=== PATIENT | male | born 1935 | race Caucasian/White ===

== ENCOUNTER 2017-03-08 14:18 | Inpatient (IN) | payer OTHER ==
[~2017-03-08] VITALS: Ht 170.2 cm; Wt 109.8 kg
[~2017-03-08 14:18] MED LIST: ADULT LOW DOSE81 MG PO; ALBUTEROL SULF8.5 GM IH; ASPIR-LOW81 MG PO; ATORVASTATIN CA80 MG PO; BUSPIRONE HCL10 MG PO; CALCICARB650 MG PO; COMBIVENT INH14.7 GM INH; FUROSEMIDE20 MG PO; GLIPIZIDE10 MG PO; GLIPIZIDE5 MG PO; ISTALOL2.5 ML OU; LISINOPRIL20 MG PO; METOPROLOL TART25 MG PO; METOPROLOL TART50 MG PO; MONTELUKAST SOD10 MG PO; NORVASC10 MG PO; ONE DAILY COMP1 EACH PO; PAROXETINE HCL20 MG PO; POTASSIUM CHLO10 MEQ PO; PRAVACHOL80 MG PO; PREDNISONE5 MG PO; PROVENTIL HFA6.7 GM INH; SPIRONOLACTONE25 MG PO; SYMBICORT 16010.2 GM INH; TRAVATAN 0.0042.5 ML OU
[2017-03-09] MEDS ORDERED: XALATAN2.5 ML OU (10:44)
[2017-03-09] MEDS ORDERED: FOLIC ACID0.8 MG PO (15:12)
[2017-03-09] MEDS ORDERED: SPIRIVA RESPIMAT4 G1 INH (15:14)
[2017-03-09] MEDS ORDERED: PROVENTIL HFA6.7 GM INH (15:15)
[2017-03-09] MEDS ORDERED: MAGNESIUM500 MG PO (15:15)
[2017-03-09] MEDS ORDERED: LANTUS SOL100 UNIT/1 SUB-Q (16:09)
[2017-03-13] MEDS ORDERED: CIPROFLOXACIN500 MG PO (10:10)
== END 2017-03-13 13:10 | disposition home or self-care (01) | DRG 603 ==
LOC: ED 14:18 → CCU 16:24 → MS 03-09 10:15
PROVIDERS: ADMIT Internal Medicine
DX: L03.116 Cellulitis of left lower limb (principal); E11.51 Type 2 diabetes mellitus with diabetic peripheral angiopathy without gangrene; Z79.4 Long term (current) use of insulin; Z79.52 Long term (current) use of systemic steroids; K59.00 Constipation, unspecified; I12.9 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e 4 chronic kidney disease, or unspecified chronic kidney disease; E11.22 Type 2 diabetes mellitus with diabetic chronic kidney disease; N18.3 Chronic kidney disease, stage 3 (moderate); R60.9 Edema, unspecified; J44.9 Chronic obstructive pulmonary disease, unspecified; E11.65 Type 2 diabetes mellitus with hyperglycemia; F39 Unspecified mood [affective] disorder; Z87.891 Personal history of nicotine dependence; Z99.3 Dependence on wheelchair; Z79.82 Long term (current) use of aspirin
CPT/HCPCS: 36415; 74176; 80053; 80069; 80202; 82565; 83036; 83605; 83735; 83880; 84520; 85025; 87070; 87075; 87077; 87186; 87205; 93306; 94640; J0696; J1650; J2405; J2550; J3370; J7030; J7060; J7120; J7512

== ENCOUNTER 2018-06-24 10:22 | Emergency (ER) | payer MEDICARE ==
[~2018-06-24] VITALS: Ht 170.2 cm; Wt 109.8 kg
[~2018-06-24 10:22] MED LIST changes: +CIPROFLOXACIN500 MG PO; +FOLIC ACID0.8 MG PO; +LANTUS SOL100 UNIT/1 SUB-Q; +MAGNESIUM500 MG PO; +SPIRIVA RESPIMAT4 G1 INH; +XALATAN2.5 ML OU
--- OUTSIDE RECORDS SUMMARY | 2018-06-24 10:36 | XMS ---
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 Guidelines Source: [facility] Guidelines Date: 12/19/2017 Care Coordination: PATIENT IS UNDER SERVICES AT [facility].\T\nbsp; IF PATIENT IS SEEN IN THE ED, PLEASE NOTIFY THEM AT [phone].\T\nbsp; IF AFTER HOURS OR ON WEEKENDS PLEASE CALL SWITCHBOARD AT [phone] AND HAVE ON-CALL RN NOTIFIED. E.D. VISIT COUNT (12 MO.) 1 [facility]. TOTAL 1 NOTE: Visits indicate total known visits. ED/UCC VISIT TRACKING (12 MO.) 06/24/2018 10:23 [facility] [place] TYPE: Emergency COMPLAINT: - BACK PAIN INPATIENT VISIT TRACKING (12 MO.) No inpatient visits to display in this time frame [id number]
[2018-06-24] MEDS ORDERED: FUROSEMIDE20 MG PO (10:42)
[2018-06-24] MEDS ORDERED: CLOPIDOGREL75 MG PO (10:44)
[2018-06-24] MEDS ORDERED: ULTRAM50 MG PO (12:43)
[2018-06-24] MEDS ORDERED: MEDROL4 MG PO (12:43)
== END 2018-06-24 12:57 | disposition home or self-care (01) ==
LOC: ED 10:22
DX: M51.36 Other intervertebral disc degeneration, lumbar region (principal); M48.061 Spinal stenosis, lumbar region without neurogenic claudication; E11.9 Type 2 diabetes mellitus without complications; I10 Essential (primary) hypertension; J44.9 Chronic obstructive pulmonary disease, unspecified; Z87.891 Personal history of nicotine dependence; Z88.8 Allergy status to other drugs, medicaments and biological substances; Z79.899 Other long term (current) drug therapy; Z79.82 Long term (current) use of aspirin; Z79.4 Long term (current) use of insulin
CPT/HCPCS: 72131; 74176; 80053; 81001; 85025; 99284-25

== ENCOUNTER 2018-08-04 13:14 | Emergency (ER) | payer MEDICARE ==
[~2018-08-04] VITALS: Ht 170.2 cm; Wt 104.4 kg
[~2018-08-04 13:14] MED LIST changes: +CLOPIDOGREL75 MG PO; +MEDROL4 MG PO; +ULTRAM50 MG PO
--- OUTSIDE RECORDS SUMMARY | 2018-08-04 13:16 | XMS ---
PreManage Notification: FILI CHAPA Security Hand Roller Events No recent Security Events currently on file CRITERIA MET - [facility] - Has Care Guidelines CARE PROVIDERS JONI STARK Internal Medicine 06/25/2018-Current [facility] PHONE: [phone] Alma Delia has no Care Guidelines for this patient. Care History Medical/Surgical 06/25/2018 [facility] - Patient is currently established with [facility]. If patient is seen in the ED during business hours. Please contact CHWs at [facility]. Care Recommendation: This patient has had 5 or more Emergency Department visits in the last 12 months.\T\nbsp; Patient requires education on the scope and purpose of the ED as an acute care provider not a Primary Care Provider and should not be utilized for chronic conditions.\T\nbsp; These are guidelines and the provider should exercise clinical judgment when providing care. E.D. VISIT COUNT (12 MO.) 2 [facility] TOTAL 2 NOTE: Visits indicate total known visits. ED/UCC VISIT TRACKING (12 MO.) 08/04/2018 13:15 [facility] [place] TYPE: Emergency COMPLAINT: - ANXIETY,BLOOD PRESSURE PROBLEM 06/24/2018 10:23 [facility] [place] TYPE: Emergency COMPLAINT: - BACK PAIN DIAGNOSES: - Chronic obstructive pulmonary disease, unspecified - Low back pain - Spinal stenosis, lumbar region without neurogenic claudication - care home (current) use of aspirin - Personal history of nicotine dependence - Essential (primary) hypertension - Other halfway (current) drug therapy - Type 2 diabetes mellitus without complications - Other intervertebral disc degeneration, lumbar region - Allergy status to other drugs, medicaments and biological substances status - 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
--- NOTE | 2018-08-05 16:55 | EKG ---
[facility] [address] [place] [address] Signed Normal sinus rhythm Right bundle branch block Left anterior fascicular block Bifascicular block Abnormal ECG When compared with ECG of 16-JUL-2016 13:02, premature atrial complexes are no longer present Vent. rate has increased BY 32 BPM Left anterior fascicular block is now present T wave inversion no longer evident in Lateral leads Confirmed by CHAZ AVENDAÑO DO ([id number]) on 08/05/2018 4:55:08 PM Electronically Signed By: CHAZ AVENDAÑO DO 08/05/18 1655 PATIENT NAME: FILI CHAPA Electrocardiogram DATE OF : 39 PHYSICIAN: CHAZ AVENDAÑO DO REPORT #: [id number] REPORT IS CONFIDENTIAL AND NOT TO BE RELEASED WITHOUT AUTHORIZATION
== END 2018-08-04 17:45 | disposition short-term general hospital (02) ==
LOC: ED 13:14
DX: F41.9 Anxiety disorder, unspecified (principal); J44.9 Chronic obstructive pulmonary disease, unspecified; I12.9 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e 4 chronic kidney disease, or unspecified chronic kidney disease; E11.22 Type 2 diabetes mellitus with diabetic chronic kidney disease; N18.9 Chronic kidney disease, unspecified; R79.89 Other specified abnormal findings of blood chemistry; Z87.891 Personal history of nicotine dependence; Z88.8 Allergy status to other drugs, medicaments and biological substances; Z79.899 Other long term (current) drug therapy; Z79.52 Long term (current) use of systemic steroids; Z79.82 Long term (current) use of aspirin; Z79.4 Long term (current) use of insulin
CPT/HCPCS: 71046; 80053; 81001; 83735; 83880; 84443; 84484; 85025; 93005; 93010; 99284-25

== ENCOUNTER 2019-05-04 11:08 | Inpatient (IN) | payer MEDICARE ==
[~2019-05-04] VITALS: Ht 170.2 cm; Wt 101.2 kg
[~2019-05-04 11:08] MED LIST changes: -CALCICARB650 MG PO; +CALCIUM600 MG PO; +TORSEMIDE20 MG PO
--- OUTSIDE RECORDS SUMMARY | 2019-05-04 11:14 | XMS ---
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 Care History Medical/Surgical 04/13/2019 [facility] Patient came in after walk in clinic closed.\T\nbsp; Patient has follow up with Dr. Stark on 04/14/2019 06/25/2018 [facility] - Patient is currently established with [facility]. If patient is seen in the ED during business hours. Please contact CHWs at [facility]. Care Recommendation: This patient has had 5 [...] providing care. E.D. VISIT COUNT (12 MO.) [address] [facility] TOTAL 4 NOTE: Visits indicate total known visits. 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 - Allergy status to oth drug/meds/biol subst status - Other intermediate (current) drug therapy - Personal history of nicotine dependence - Shortness of breath - Chronic obstructive pulmonary disease, unspecified - 1 Type 2 diabetes mellitus without complications - 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 - Heart failure, unspecified 08/04/2018 13:15 [facility] [place] TYPE: Emergency COMPLAINT: - ANXIETY,BLOOD PRESSURE PROBLEM DIAGNOSES: - Anxiety disorder, unspecified - Other specified abnormal findings of blood chemistry - Chronic kidney disease, unspecified - 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 - Other buttermilk drier operator (current) drug therapy - 1 Hypertensive chronic kidney disease w stg 1-4/unsp chr kdny - Chronic obstructive pulmonary disease, unspecified - 1 Type 2 diabetes mellitus w diabetic chronic kidney disease - Allergy status to oth drug/meds/biol subst status - Personal history of nicotine dependence - long-term (current) use of systemic steroids - 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 06/24/2018 10:23 [facility] [place] TYPE: Emergency COMPLAINT: - BACK PAIN DIAGNOSES: - Chronic obstructive pulmonary disease, unspecified - Low back pain - Spinal stenosis, lumbar region without neurogenic bernadette - 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 - Personal history of nicotine dependence - Essential (primary) hypertension - Other buttermilk drier operator (current) drug therapy - 1 Type 2 diabetes mellitus without complications - Other intervertebral disc degeneration, lumbar region - Allergy status to oth drug/meds/biol subst status - 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 INPATIENT VISIT TRACKING (12 MO.) 08/04/2018 18:18 [facility] [place] [facility] TYPE: Medical Surgical DIAGNOSES: - Chronic obstructive pulmonary disease w (acute) exacerbation - 1 Chronic kidney disease, stage 3 (moderate) - Peripheral vascular disease, unspecified - 1 Pressure ulcer of left heel, stage - 1 Type 2 diabetes mellitus without complications - Acute kidney failure, unspecified - Major depressive disorder, single episode, unspecified - Essential (primary) hypertension - Chronic obstructive pulmonary disease, unspecified - 1 Chronic kidney disease, stage 4 (severe) - 1 Type 2 diabetes mellitus with other specified complication - Anxiety disorder, unspecified - Proteinuria, unspecified - 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
--- NOTE | 2019-05-04 12:35 | NUR ---
84 YEAR OLD MALE PATIENT ADMITTED TO CCU VIA STRETCHER UNDER DR. STARK WITH DX OF SEPSIS R/T PNEUMONIA. PATIENT IS VERY LETHARGIC. IS ABLE TO ANSWERE TO FEW QUESTIONS THE RIGHT BACK TO SLEEP. FOLLOWING COMMANDS. IS CONFUSED TO PLACE. HAVING SNORING LIKE RESPS. UPPER AIRWAY NOISE NOTED. TEAGUE CATH PATIENT WITH CLEAR YELLOW URINE NOTED. LR ONE LITER BOLUS HUNG. IS IN ROOM PUT IS GOING HOME NOW. DIFFICULT TO DO ADMIT IS HAVING DIFFICULTLY ANSWERING QUESTIONS.
[2019-05-04] MEDS ORDERED: DOXAZOSIN MESYLA8 MG PO (14:57)
[2019-05-04] MEDS ORDERED: GLIPIZIDE10 MG PO (15:01)
[2019-05-04] MEDS ORDERED: TORSEMIDE20 MG PO (15:01)
--- NOTE | 2019-05-04 15:40 | NUR ---
BOLUS INFUSED. LR AT 125 ML/HR HUNG. DAUGHTER IN ROOM. DRESSING APPLIED TO LEFT HEEL. HEEL PROTECTORS ON. PATIENT HAS BEEN TREATED R/T DECUB ON LEFT HEEL BY HOME HEALTH FOR SOMETIME.
--- NOTE | 2019-05-04 16:00 | NUR ---
CONTINUES TO BE LETHARGIC. SNORING RESP.
--- NOTE | 2019-05-04 16:11 | NUR ---
Spoke with pt's daughter as pt is pleasantly confused. Daughter states Home Health saw the pt. today and called the ambulance due to altered senses. Pt and live with daughter in a 1 story house with ramps. Daughter does all the cooking and pt and dlean their area and wash their laundry. [facility] [place] 10 years and can take 1-2 steps to transfer. Pt is retired from [employer]. Daughter states pt will go home at discharge and does not want him to go to a SNF.
--- NOTE | 2019-05-04 17:00 | NUR ---
DR. STARK HERE AND UPDATED ON PATIENT CONDITION. ORDERS RECIEVED TO DRAW ABG. O2 REMAINS AT 2 L NC.
--- NOTE | 2019-05-04 17:42 | NUR ---
ABGS RESULTS ON 2 L NC, PH-7.37, PC02-40.7, PO2-93,SAT-96.5.
--- NOTE | 2019-05-04 18:00 | NUR ---
MORE ALERT, RESPONDING APPROP. REPOSITIONED TO RIGHT SIDE. COCCYX AND BUTTOCKS REDDENED. CARES GIVEN. SIPS OF WATER GIVEN TOLERATED WELL.
--- NOTE | 2019-05-04 18:50 | NUR ---
REMAINS MORE ALERT. IS AWARE THAT SPUTUM CULTURE IS NEEDED. SPUTUM CUP IS AT BEDSIDE.
--- NOTE | 2019-05-04 19:39 | NUR ---
PT REPORT RECIEVED FROM CCU RN. CARE OF PATIENT ASSUMED AT THIS TIME.
--- NOTE | 2019-05-04 20:09 | NUR ---
PT ASSESSMENT COMPLETED. PT AWAKENS TO VOICE, THEN BACK TO SLEEP DURING ASSESSMENT. LUNGS SOUN DIMINISHED IN BOTH BASES, EXPIRATORY WHEEZE NOTED IN UPPER AIRWAYS. PT DENIES CHEST PAIN, NAUSEA, OR SHORTNESS OF BREATH. CALL LIGHT WITHIN REACH. BED ALARM ON BED FOR SAFETY.
--- NOTE | 2019-05-04 21:56 | NUR ---
IN ROOM TO CHECK ON PATIENT. ASSISTED WITH REPOSITIONING. STATES PAIN HAS REDUCED TO 3/10 SINCE TYLENOL ADMINISTRATION. CALL LIGHT WITHIN REACH. NO FURTHER NEEDS AT THIS TIME.
--- NOTE | 2019-05-04 23:15 | NUR ---
PT RESTING WITH EYES CLOSED BREATHING EVEN AND UNLABORED R= 18. CALL LIGHT WITHIN REACH. NO MORE ASSESSED NEEDS AT THIS TIME.
--- NOTE | 2019-05-05 00:10 | NUR ---
IN ROOM TO ASSESS PATIENT. PT RESPONDS APPROPRIATELY. ALERT AND ORIENTED. DENIES PAIN AND DISCOMFORT AT THIS TIME. REPOSTIONED ONTO LEFT SIDE. LUNGS SOUND COARSE AND DIMINISHED IN THE BASES, EXPIRATORY WHEEZES UP UPPER LEFT LOBE NOTED. SATURATIONS 98 PERCENT ON 2 L NC, R = 20. CALL LIGHT WITHIN REACH. NO REPORTED OR ASSESSED NEEDS AT THIS TIME.
--- NOTE | 2019-05-05 02:00 | NUR ---
IN ROOM TO CHECK ON PATIENT. PT STATES HE FEELS MORE SHORT OF BREATH AND COUGH. STATES A GENERALIZED FEELING OF DISCOMFORT. TEMPERATURE IS 99.9 ORALLY. CALLED RESPIRATORY THERAPY TO GIVE A PRN BREATHING TREATMENT AND GIVEN PRN MEDICATION FOR FEVER AND PAIN (SEE EMAR).
--- NOTE | 2019-05-05 03:04 | NUR ---
PT APPEARS TO BE RESTING MORE COMFORTABLY. DENIES FEELING SHORT OF BREATH, TEMPERATURE DOWN TO 98.9 ORALLY. CALL LIGHT WITHIN REACH. NO FURTHER NEEDS AT THIS TIME.
--- NOTE | 2019-05-05 04:40 | NUR ---
IN ROOM FOR ASSESSMENT. PT SHAKY, HACKING COUGH THAT IS NON PRODUCTIVE AT THIS TIME. PT HAS EXPIRATORY WHEEZES IN BOTH LOWER AIR BREWER. HEART RATE SLIGHTLY ELEVATED IN THE 100-110.
--- NOTE | 2019-05-05 05:46 | NUR ---
PT GIVEN TYLENOL FOR ORAL TEMP OF 100.3. PT TREMBELING, HEART RATE REMAINS IN 105-110.
--- NOTE | 2019-05-05 06:26 | NUR ---
PT TEMPERATURE 101.[address] STARK NOTIFIED. ORDERS FOR A SECOND SET OF BLOOD CULTURES RECIEVED.
--- NOTE | 2019-05-05 07:30 | NUR ---
REPORT RECIEVED. PATIENT IS LAYING IN BED WITH HOB ELEVATED. NO DISTRESS NOTED.
--- NOTE | 2019-05-05 08:00 | NUR ---
ASSESSMENT DONE. TALKED WITH PATIENT ABOUT POC FOR DAY. PATIENT IS SLEETMUTE. IS DIFFICULT TO KNOW IF PATIENT IS UNDERSTANDING ALL THAT IS SAID.
--- NOTE | 2019-05-05 08:30 | NUR ---
OOB TO CHAIR WITH USE OF WALKER AND ASSIST OF 2 STAFF, WITH INCREASED SHORTNESS OF BREATH WITH EXERTION. CLEAR LIQUID DIET ORDERED. PATIENT STATES HE FEELS VERY TIRED. FULLY ORIENTED. IVF AND TEAGUE CATH PATENT. O2 REMAINS AT 2 L NC.
--- NOTE | 2019-05-05 09:30 | NUR ---
DR. STARK HERE TO SEE PATIENT, ORDERS RECIEVED. PATIENT TOOK CLEAR LIQUID BREAKFAST WELL. DENIES NAUSEA. IS IN ROOM.
[2019-05-05] MEDS ORDERED: PAROXETINE HCL20 MG PO (10:33)
[2019-05-05] MEDS ORDERED: NEURONTIN300 MG PO (10:34)
[2019-05-05] MEDS ORDERED: ALOGLIPTIN12.5 MG PO (10:35)
[2019-05-05] MEDS ORDERED: SPIRIVA RESPIMAT4 GM INH (10:37)
[2019-05-05] MEDS ORDERED: NORVASC5 MG PO (10:38)
[2019-05-05] MEDS ORDERED: FEOSOL325 MG PO (10:39)
[2019-05-05] MEDS ORDERED: COLACE CLEAR50 MG PO (10:40)
[2019-05-05] MEDS ORDERED: MEN'S ONE DAIL1 EACH PO (10:41)
[2019-05-05] MEDS ORDERED: FOLIC ACID0.8 MG PO (10:43)
--- NOTE | 2019-05-05 10:45 | NUR ---
TO COMMODE WITH ASSIST, UNABLE TO HAVE BM. PATIENT STATES THE STOOL IS RIGHT THERE, MODFIED DIGITAL DONE. PATIENT THEN BACK TO BED WITH ASSIST.
--- NOTE | 2019-05-05 11:31 | NUR ---
NEB TREATMENT BEING GIVEN BY RT PT IS WITH WHEEZES UPON RETURN TO BED.
[2019-05-05] MEDS ORDERED: LASIX20 MG PO (11:44)
[2019-05-05] MEDS ORDERED: HUMULIN R100 UNIT/1 SUB-Q (12:42)
--- NOTE | 2019-05-05 12:45 | NUR ---
Med rec completed using [facility] refill history, plus med list provided by Dr. Harris.
--- NOTE | 2019-05-05 13:00 | NUR ---
Resting quietly, not awakened.
--- NOTE | 2019-05-05 13:45 | NUR ---
when suppository given, SMALL OPEN AREA ON COCCYX NOTED , ALSO HAS SMALL BRUISE LIKE AREA ON RIGHT INNER BUTTOCKS. ALLEVYN DRESSING APPLIED TO BOTH OF THESE AREAS.
--- NOTE | 2019-05-05 14:00 | NUR ---
RESTING. HOB ELEVATED. NO DISTRESS NOTED.
--- NOTE | 2019-05-05 14:45 | NUR ---
C/O FEELING VERY ANXIOUS. RESP RATE 28. PATIENT STATES HE HAS ANXIETY SOMETIMES AT HOME. STATES I JUST DON'T FEEL RIGHT. DENEIS CHEST PAIN. DAMP RAG APPLIED TO FOREHEAD. EMOTIONAL SUPPORT GIVEN. DR. STARK NOTIFIED REGARDING ANXIETY, NO U/O SINCE HO GARCIA DC'D AT 1030, AND PATIENT NEED TO HAVE BM. ORDERS RECIEVED.
--- NOTE | 2019-05-05 15:15 | NUR ---
BLADDER SCAN DONE FOR 245 MLS. PATINET IS MORE RELAXED NOW.
--- NOTE | 2019-05-05 17:00 | NUR ---
UP TO COMMODE TO EXPELL LARGE HARD BROWN STOOL, TRANSFERRED TO BED. WISHES TO SIT AT BEDSIDE FOR MOW.
--- NOTE | 2019-05-05 18:43 | NUR ---
BLADDER SCAN REPEATED FOR 345 ML, PATIENT HAS NOT VOIDED SINCE TEAGUE CATH DC'D AT 1030 THIS AM.
--- NOTE | 2019-05-05 18:56 | NUR ---
DR. STARK UDATED ON PATIENT REGARDING NO URINE OUTPUT SINCE TEAGUE CATH DC'D, ALSO AWARE OF RECENT BLADDER SCAN VALUE. ORDERS RECIEVED TO GIVE 500 ML LR OVER ONE HR THEN DECREASE TO 125 ML/HR.
--- NOTE | 2019-05-05 19:26 | NUR ---
REPORT RECIEVED FROM CCU RN, CARE OF PATIENT ASSUMED AT THIS.
--- NOTE | 2019-05-05 19:40 | NUR ---
in room for ASSESSMENT. PT HAS 500 ML FLUID BOLUS CONTINUING TO INFUSE. PT ALERT ANDORIENTED X4. YET TO COID. DENIES PAIN, BUT STATES HE IS HAVING MILD SHORTNESS OF BREATH. SATURATIONS 99 PERCENT ON 1 L NC. RR+22. EXPIRATORY WHEEEZES AND COARSENESS NOTED IN ALL AIR FIELD, WORSE ON THE RIGHT SIDE. ASSISTED WITH REPOSITIOINING. DISCUSSED PLAN OF CARE FOR NIGHT. CALL LIGHT WITHIN REACH. WILL CONTINUE TO CLOSELY MONITOR URINARY OUTPUT AND RESPIRATORY STATUS.
--- NOTE | 2019-05-05 19:50 | NUR ---
SPOKE WITH DR STARK ABOUT PT URINE OUTPUT AND BLADDER SCAN SHOWING 438 ML IN THE BLADDER. TEAGUE CATHETER ORDER VIA TELEPHONE ORDER AT THIS TIME.
--- NOTE | 2019-05-05 20:17 | NUR ---
TEAGUE CATH INSERTION COMPLETED. WELL TOLERATED BY PATIENT. 425 URINE OUT UPON INSERTION.
--- NOTE | 2019-05-05 22:00 | NUR ---
PT RESTING WITH EYES CLOSED. BREATHING EVEN BUT LABORED. RR=16. SPO2 = 98%, CALL LIGHT WITHIN REACH. NO ASSESSED NEEDS AT THIS TIME.
--- NOTE | 2019-05-06 00:08 | NUR ---
IN ROOM FOR ASSESSMENT. PT DENIES SHORTNESS OF BREATH, PAIN, OR OTHER DISCOMFORT AT THIS TIME. NO CHANGES IN ASSESSMENT. URINE OUTPUT WNL. REPOSITIONED ON TO LEFT SIDE. CALL LIGHT WITHIN REACH. NO FURTHER NEEDS AT THIS TIME.
--- NOTE | 2019-05-06 00:10 | NUR ---
PT RESTING WITH EYES CLOSED. BREATHING EVEN AND LABORED RR=22. O2 SATS REMAIN IN 99 % ON 1 L NC. CALL LIGHT AND BELONGINGS WITHIN REACH OF PATIENT.
--- NOTE | 2019-05-06 00:11 | NUR ---
PT MAKES FREQ HIGH PITCHED CRIES AND MOANS. WILL ANSWER "YES" TO ALL QUESTIONS. GIVEN WARM BLANKET FOR COMFORT WHICH DIDN'T DECREASE VOCALIZATIONS. GAVE 2MG MORPHINE IV FOR COMFORT. PT DID NOT FLINCH WHEN ABD PALPATED. ORAL CARE DONE.
--- NOTE | 2019-05-06 02:05 | NUR ---
AWAKE ASKING FOR WATER AND C.O JESSICA, GIVEN 500MG TYLENOL PO.
--- NOTE | 2019-05-06 04:08 | NUR ---
IN ROOM FOR ASSESSMENT. REPOSITIONED PT ONTO LEFT SIDE. ALLEVYN DRESSING ON LEFT HEAL REPLACED. PT REQUESTING BREATHING TX. RT IN ROOM AT THIS TIME.
--- NOTE | 2019-05-06 05:08 | NUR ---
PT HAVING SHORT RUNS OF SVT, HEART RATE UP TO 120-130. BECOMING MORE FREQUENT. DR. STARK UPDATED. IV FLUIDS DECREASED TO 75 MLS/HR.
--- NOTE | 2019-05-06 06:09 | NUR ---
PT REPOSITIONED ONTO LEFT SIDE. CALL LIGHT WITHIN REACH. NO FURTHER NEEDS AT THIS TIME.
--- NOTE | 2019-05-06 06:41 | NUR ---
ASSISTED PT FROM BED UP TO CHAIR. PT REQUIRED ONE PERSON ASSIST AND FWW. BECAME SHORT OF BREATH WITH EXERTION AND TOOK SEVERAL MINUTES TO RECOVER AFTER SITTING. PT NOW RESTING COMFORTABLY IN RECLINER. CALL LIGHT WITHIN REACH. NO FURTHER NEEDS AT THIS TIME.
--- NOTE | 2019-05-06 07:30 | NUR ---
REPORT RECIEVED. PATIENT IS ASLEEP IN CHAIR AT THIS TIME. TEAGUE CATH, IVF,O2 AT 1 L NC ALL PATENT AND IN PLACE.
--- NOTE | 2019-05-06 08:00 | NUR ---
ASSESSMENT DONE. C/O FEELING COLD. TEMP-100.5. IS CHILLING. WILL CONTINUE TO MONITOR FEVER. ACCUCHECK 137. WARM BLANKENT GIVEN. POC FOR DAY DISCUSSED WITH PATIENT.
--- NOTE | 2019-05-06 08:18 | NUR ---
In to speak with pt. He is sleeping. Nurse aurora, is in the room. States pt. not feeling well today. Fever is elevated and pt is chilling. Pt has gone to sleep not awakened.
--- NOTE | 2019-05-06 10:00 | NUR ---
DR. STARK HERE TO SEE PATIENT. ORDERS RECIEVED. WILL RECIEVE 2 UNITS PRBC'S TODAY.
--- NOTE | 2019-05-06 10:45 | NUR ---
FIRST UNIT PRBC'S HUNG. PATIENT REMAINS IN CHAIR. NO FUTHER CHANGES.
--- NOTE | 2019-05-06 11:37 | NUR ---
BACK TO BED WITH ASSIST. IS VERY TIRED TODAY.
--- NOTE | 2019-05-06 12:03 | NUR ---
ACCUCHECK-240. HUMALOG 6 UNITS SQ GIVEN. REFUISNG LUNCH. PRBC'S INFUSING WITH PROBLEM. CONTINUES TO HAS EXP WHEEZEZ. DENIES INCREASED SHORTNESS OF BREATH.
--- NOTE | 2019-05-06 13:27 | NUR ---
FIRST UNIT OF PRBC'S COMPLETE. SITTING UP IN BED TO TAKE LUNCH. REMAINS VERY DYSPNIC WITH ANY EXERTION. MUCH MORE TIRED TODAY.
--- NOTE | 2019-05-06 13:30 | NUR ---
TOOK ENSURE AND YOGART FOR LUNCH.
--- NOTE | 2019-05-06 13:35 | NUR ---
2ND UNIT PRBC'S HUNG.
--- NOTE | 2019-05-06 14:03 | NUR ---
PT HAD JUST DRIFTED OFF AND LUPE FUNES EXPRESSED THAT SHE IS CONCERNED THAT PT IS NOT IMPROVING. SHE SUGGESTED I LET HIM REST. WILL CHECK BACK AGAIN
--- NOTE | 2019-05-06 15:54 | NUR ---
PT SLEEPING, CCU NURSE SHANTEL ASKED THAT I NOT DISTURB PT AND SHE STATES HE HAS BEEN SOMEWHAT CONFUSED.
--- NOTE | 2019-05-06 16:26 | NUR ---
BLOOD INFUSED. IVF RESTARTED.
--- NOTE | 2019-05-06 18:07 | NUR ---
SITTING UP AT BEDSIDE TO EAT DINNER.
--- NOTE | 2019-05-06 18:36 | NUR ---
TRANSFERRED TO [facility] WITH ASSIST.
--- NOTE | 2019-05-06 18:43 | NUR ---
BACK TO BED AFTER HAVING HARD FORMED STOOL. EXTREME SHORTNESS OF BREATH
--- NOTE | 2019-05-06 19:27 | EKG ---
[facility] [address] [place] [address] Signed Poor data quality, interpretation may be adversely affected Normal sinus rhythm Right bundle branch block Left anterior fascicular block Bifascicular block Abnormal ECG When compared with ECG of 10-APR-2019 19:22, Current undetermined rhythm precludes rhythm comparison, needs review T wave inversion now evident in Anterior leads Confirmed by JONI STARK MD ([id number]) on 05/06/2019 7:26:57 PM Electronically Signed By: JONI STARK MD 05/06/19 192 PATIENT NAME: FILI CHAPA Electrocardiogram DATE OF : 39 PHYSICIAN: JONI STARK MD REPORT #: [id number] REPORT IS CONFIDENTIAL AND NOT TO BE RELEASED WITHOUT AUTHORIZATION
--- NOTE | 2019-05-06 19:27 | NUR ---
RECEIVED REPORT FROM NORMANFLBARB. pt RESTING IN BED RECEIVING BREATHING TREATMENT. NO REQUESTS AT THIS TIME. WHITEBOARD UPDATED. CALL LIGHT WITHIN REACH.
--- NOTE | 2019-05-06 20:19 | NUR ---
ASSESSMENT DONE. pt RESTING IN BED. DENIES PAIN AT THIS TIME. TEAGUE CARE DONE. I&O RECORDED. pt REPORTED SOB, RESPIRATIONS 18, WHEEZES AUDIBLE. O2 SAT 98% ON 1L O2 NC. MEDICATIONS ADMINSTERED. NO FURTHER REQUESTS AT THIS TIME. CALL LIGHT AND POSSESSIONS WITHIN REACH.
--- NOTE | 2019-05-06 21:33 | NUR ---
pt DEMONSTRATING CPT. TEMPORAL TEMP 102, PRN TYLENOL GIVEN.
--- NOTE | 2019-05-06 22:20 | NUR ---
NOTIFED DR STARK OF pt STATUS WITH WORK OF BREATHING AND FEELING SOB. SPOKE WITH RT SHELLI. WILL START VAPOTHERM.
--- NOTE | 2019-05-06 22:38 | NUR ---
IV FLUID RATE INCREASED TO 75 PER VERBAL ORDER FROM MD.
--- NOTE | 2019-05-06 22:54 | NUR ---
IV STEROID GIVEN PER ORDERS (SEE MAR). pt TOLERATING VAPOTHERM WELL. NO REQUESTS AT THIS TIME. CALL LIGHT WITHIN REACH.
--- NOTE | 2019-05-06 23:15 | NUR ---
UROMETER TIPPED, 55MLS. SLIGHT PINK IN COLOR. AWARE. pt REPORTED THAT THE VAPOTHERM MAKES HIM FEEL "CLAUSTROPHOBIC" HE STATED "I'LL KEEP TRYING"
--- NOTE | 2019-05-07 00:08 | NUR ---
pt REPORT "IT TOOK A LITTLE WHILE TO GET OVER THIS BUT I'M FEELING MUCH BETTER" SITTING ON THE SIDE OF THE BED. ASSESSMENT DONE. NO REQUESTS AT THIS TIME. FRESH WATER PROVIDED. CALL LIGHT WITHIN REACH. ON VAPOTHERM
--- NOTE | 2019-05-07 01:00 | NUR ---
IV PUMP BEEPING, RESOLVED. pt RESTING IN BED, EYES CLOSED, SNORING. CALL LIGHT WITHIN REACH.
--- NOTE | 2019-05-07 02:11 | NUR ---
ROUNDED ON pt. RESTING WITH EYES CLOSED, RESPIRATIONS REGULAR, SNORING. CALL LIGHT WITHIN REACH.
--- NOTE | 2019-05-07 03:05 | NUR ---
ROUNDED ON pt. RESTING WITH EYES CLOSED, RESPIRATIONS REGULAR. CALL LIGHT WITHIN REACH.
--- NOTE | 2019-05-07 04:05 | NUR ---
ROUNDED ON pt. RESTING WITH EYES CLOSED, RESPIRATIONS REGULAR. CALL LIGHT WITHIN REACH.
--- NOTE | 2019-05-07 05:26 | NUR ---
ASSESSMENT COMPLETED. pt RESTING WITH EYES CLOSED, SNORING. DID NOT WAKE TO GENTLE TOUCH OR SOFT VOICE. CALL LIGHT WITHIN REACH.
--- NOTE | 2019-05-07 05:48 | NUR ---
SLEEPS OFF AND ON. CONT CONFUSED BUT COOPERATIVE. CONT TO COUGH PRODUCTIVLY OF RUST COLORED SPUTUM.
--- NOTE | 2019-05-07 06:37 | NUR ---
pt WOKE, COUGHING. pt REPORTED "I SLEPT SOME, I FEEL A BIT BETTER TODAY THAN YESTERDAY" NO REQUESTS AT THIS TIME. CALL LIGHT WITHIN REACH.
--- NOTE | 2019-05-07 08:15 | NUR ---
IV SITES ARE INTACT, NO REDNESS OR SWELLING NOTED, PT DENIES PAIN AT EITHER SITE, FLUIDS AND FLUSHES INFUSE EASILY. PT AWAKE AND ALERT X4. VITALS ARE WNL AT THIS TIME.
--- NOTE | 2019-05-07 09:34 | NUR ---
pt sitting up in bed eating breakfast, alert and oriented x4, cheerful and cooperative. pt denies pain, nausea, and reports sob is much improved. pt requested and was given his lower dentures to assist with eating, dentures cleaned first.
--- NOTE | 2019-05-07 13:00 | NUR ---
PT GIVEN COMPLETE BEDBATH, TRANSFERED TO TO CHAIR WITH [place] LIFT, ALL LINENS CHANGED. PT NII ACTIVITY WELL. TEAGUE CATH CARES DONE. IV SITES REMAIN INTACT, NO REDNESS OR SWELLING NOTED, FLUIDS AND FLUSHES INFUSE EASILY, PT DENIES PAIN AT EITHER SITE. PT DENIES PAIN, NAUSEA, AND SOB IN GENERAL.
--- NOTE | 2019-05-07 13:50 | NUR ---
pt able to eat 100% of his lunch, is sitting up in chair watching tv. pt denies pain, nausea, and c/o slight sob, requests neb. called resp therapy to admin neb. pt o2 sats remain wnl.
--- NOTE | 2019-05-07 15:18 | NUR ---
pt resting/sleeping in chair. call light is within reach. pt vitals are within normal. pt remains on vapotherm.
--- NOTE | 2019-05-07 16:17 | NUR ---
PT DENIES PALPITATTIONS AND CHEST PAIN, PT REPORTS SOME SLIGHT ANXIETY. PT ALSO REPORTED BRIEF FEELING OF NAUSEA THAT PASSED QUICKLY. BLOOD GLUCOSE TESTED, 385. PT DENIES PAIN IN GENERAL. PULSES IN BILAT WRISTS BOUNDING, IN BILAT FEET PALPABLE. PT REMAINS ALERT AND ORIENTED, INTERACTS APPROPRIATELY.
--- NOTE | 2019-05-07 16:27 | NUR ---
In and spoke with Rolando. He states he feels, "damn poor". Watching TV. Denies needs.
--- NOTE | 2019-05-07 19:30 | NUR ---
PT RESTING IN BED WATCHING TV. STATES "I'M FEELING MUCH BETTER, MENTALLY TOO."
--- NOTE | 2019-05-07 20:30 | NUR ---
ASSESSMENT COMPLETED SEE DOCUMENTATION. UPDATED PLAN OF CARE. EDUCATION PROVIDED ON MEDICATIN AND CURRENT ILLNESS. REINFORCED SAFETY AND FALL PRECAUTIONS. CBG 424, PHONE CALL TO PROVIDER REGARDING FINDINGS.
--- NOTE | 2019-05-07 21:00 | NUR ---
PHONE CALL TO DR. AVENDAÑO REGARDING CBG OF 424. ORDER RC'D TO HOLD SOLU MEDROL, INCREASE LANTUS TO 45 UNITS, AND GIVE SLIDING SCALE PER PROTOCOL, READ BACK AND VERIFIED.
--- NOTE | 2019-05-07 21:30 | NUR ---
PT DEMONSTRATED USE OF I/S AND CPT.
--- NOTE | 2019-05-07 22:00 | NUR ---
PT RESTING IN BED WATCHING TV. DENIES NEEDS. CALL LIGHT WITHIN REACH.
--- NOTE | 2019-05-08 | NUR ---
EDEMA TO BLE NOTED TO INCREASE TO +2. NO OTHER ACUTE CHANGES TO ASSESSMENT. PT AWAKENS EASILY AND AAOX4. DENIES OTHER NEEDS. CALL LIGHT WITHIN REACH.
--- NOTE | 2019-05-08 01:35 | NUR ---
HR NOTED TO BE IN THE 120'S. RN IN ROOM TO ASSESS PT. PT RESTING WITH EYES CLOSED AND ARM CLENCHED ABOVE HEAD. AWAKENS EASILY. DENIES PAIN/DISCOMFORT. 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
--- NOTE | 2019-05-08 02:41 | NUR ---
HR REMAINS IN 120'S. IN ROOM TO ASSESS PT. PT C/O BURNING IN MID STERNAL AREA WITH ACIDIC BELCH. MAALOX ORDERED. WILL CONTINUE TO MONTIOR.
--- NOTE | 2019-05-08 03:07 | NUR ---
PT GIVEN MAALOX AND REPOSITIONED. PT STATES, "THAT'S SO MUCH BETTER."
--- NOTE | 2019-05-08 04:05 | NUR ---
PT HAD LARGE EMESIS AFTER GIVEN MAALOX. ZOFRAN GIVEN. PT C/O OF "HEARTBURN," MAALOX READMINISTERED. WILL CONTINUE TO MONITOR.
--- NOTE | 2019-05-08 05:00 | NUR ---
PT STATES "I'M NOT FEELING A LOT BETTER BUT NOT ANY WORSE. I GUESS THE MEDS NEED MORE TIME." REPORTS IMPROVEMENT IN NAUSEA. HR 110. WILL CONTINUE TO MONITOR.
--- NOTE | 2019-05-08 06:21 | NUR ---
PT REMAINS RESTFUL WITH HR IN 90'S. NO ACUTE DISTRESS NOTED.
--- NOTE | 2019-05-08 07:07 | NUR ---
PT C/O ONGOING ABD BURNING, "HEARTBURN," AND NAUSEA. JANNA TO DR. AVENDAÑO, ORDER FOR PHENEGRAN 12.5 Q6P AND GI COCKTAIL ONCE, READ BACK AND VERIFIED.
--- NOTE | 2019-05-08 07:42 | NUR ---
PT GIVEN GI COCKTAIL FOR INDIGESTION DISCOMFORT, AND 12.5 MG IV PHENERGAN FOR NAUSEA. PT IS AWAKE AND ALERT X4. REPORTS "I DIDN'T HAVE A GOOD NIGHT". PT DENIES SOB ANY MORE THAN BASELINE. IV SITE IS INTACT, NO REDNESS OR SWELLING NOTED, FLUSH INFUSES EASILY, PT DENIES PAIN WITH FLUSH. CALL LIGHT IS WITHIN REACH.
--- NOTE | 2019-05-08 08:36 | NUR ---
PT REPORTS SOME IMPROVEMENT IN NAUSEA AND EPIGASTRIC PAIN. PT IS SLIGHTLY DROWSY FROM PHENERGAN. PT ANSWERS QUESTIONS APPROPRIATLY. HR SLIGHTLY ELEVATED IN THE 120'S MD IS AWARE. ALL OTHER VITALS ARE WNL AT THIS TIME. PT USES CALL LIGHT APPROPRIATLY.
--- NOTE | 2019-05-08 10:28 | NUR ---
PT SLEEPING SOUNDLY IN BED, VITALS WNL EXCEPT FOR ELEVATED HR, MD IS AWARE. PT DOES NOT WAKE FOR ADMINISTRATION OF IV MEDS.
--- NOTE | 2019-05-08 10:37 | NUR ---
PT ABLE TO DRINK ONE FULL DOSE OF GASTROGAFIN, NO NAUSEA/EMISIS.
--- NOTE | 2019-05-08 10:45 | NUR ---
PATIENT RESTING WITH EYES CLOSED. WILL CHECK LATER.
--- NOTE | 2019-05-08 12:05 | NUR ---
PT LEAVING UNIT TO GO FOR ABD CT. ICU NR GOING WITH.
--- NOTE | 2019-05-08 12:30 | NUR ---
PT BACK TO ROOM FROM CT. PT NII PROCEDURE WELL.
--- NOTE | 2019-05-08 14:05 | NUR ---
IV SITE INTACT, NO REDNESS OR SWELLING NOTED, PT DENIES PAIN AT SITE, FLUIDS AND FLUSHES INFUSE EASILY. PT SITTING UP IN BED WATCHING TV AT THIS TIME. PT IS ALERT AND ORIENTED X4.
--- NOTE | 2019-05-08 14:50 | NUR ---
PT INCONTINENT OF LARGE AMOUNT OF SOFT STOOL. ALL LINENS CHANGED, PT CLEANED, TEAGUE CATH CARES DONE, LANI CARE DONE. PT ABLE TO ASSIST WITH REPOSITIONING SELF FROM SIDE TO SIDE.
--- NOTE | 2019-05-08 15:15 | NUR ---
PT REPORTS HE FEELS HE MIGHT NEED TO HAVE ANOTHER BM, PLACED ON BED MIR. PT HAS CALL LIGHT WITHIN REACH.
--- NOTE | 2019-05-08 15:40 | NUR ---
PT TAKEN OFF BEDPAN, MEDIMUM SIZE BM SOME SOFT AND SOME FIRM FORMED STOOL. PT CLEANED UP, GIVEN FLEETS ENEMA. PT ASSISTED TO LAY ON RT SIDE. MOST OF ENEMA NOTED TO LEAK OUT APPEARS PT HAS POOR RECTAL TONE. PT NII WELL. ASSISTS WITH REPOSITIONING FROM SIDE TO SIDE. PT APPEARS TO BE FEELING SLIGHTLY BETTER THIS AFTERNOON. PT DENIES PAIN AND NAUSEA, STATES SOB IS BASELINE.
--- NOTE | 2019-05-08 19:30 | NUR ---
REPORT RC'D FROM DAY SHIFT NURSE JOZEF. REPORTS NAUSEA THROUGHOUT DAY MANAGED WITH ANTIEMETICS. BM X2. PT CURRENTLY IN BED RESTING WITH EYES CLOSED. VAPO THERM. NO ACUTE DISTRESS.
--- NOTE | 2019-05-08 19:45 | EKG ---
[facility] [address] [facility] [place] [id number] Signed Normal sinus rhythm Right bundle branch block Abnormal ECG When compared with ECG of 04-MAY-2019 11:12, Left anterior fascicular block is no longer present Confirmed by CHAZ AVENDAÑO DO ([id number]) on 05/08/2019 7:45:11 PM Electronically Signed By: CHAZ AVENDAÑO DO 05/08/19 194 PATIENT NAME: FILI CHAPA Electrocardiogram DATE OF : 39 PHYSICIAN: CHAZ AVENDAÑO DO REPORT #: [id number] REPORT IS CONFIDENTIAL AND NOT TO BE RELEASED WITHOUT AUTHORIZATION
--- NOTE | 2019-05-08 21:00 | NUR ---
ASSESSMENT COMPLETED SEE DOCUMENTATION. PT REPORTS "HAVING A BETTER DAY." DENIES PAIN. REQUESTS NEB, COMPLETED. REPORTS MILD NAUSEA, MED PROVIDED. PM CARE TO BE COMPLETED.
--- NOTE | 2019-05-08 22:22 | NUR ---
COMPLETE BED BATH, ORAL CARE, DENTURE CARE, WARM CLOTH TO FACE/EYES, LANI CARE, CATH CARE, SKIN CARE COMPLETED. NEW GOWN AND PARTIAL LINEN CHANGE. PT HAD MEDIUM FORMED BM. ROOM CLEANED. PT REPOSITIONED. ENCOURAGED REST AND RELAXATION. DENIES OTHER NEEDS. PERSONAL SUPPLIES AND CALL LIGHT [place] REACH.
--- NOTE | 2019-05-09 00:43 | NUR ---
NO ACUTE CHANGES TO ASSESSMENT. PT REMAINS RESTFUL. NO ACUTE DISTRESS NOTED.
--- NOTE | 2019-05-09 02:00 | NUR ---
PT RESTING WITH EYES CLOSED, RESPIRATIONS EVEN AND UNLABORED, VAPOTHERM AT 28% WITH SPO2 OF 98%. NO ACUTE DISTRESS.
--- NOTE | 2019-05-09 02:10 | NUR ---
PT STATES HE'S HAVING "TROUBLE BREATHING". O2 NC IN PLACE, OXYGEN SATURATIONS 100%. RR EVEN AND NON-LABORED. PT REQUESTING PRN BREATHING TX, RT NOTIFIED.
--- NOTE | 2019-05-09 04:30 | NUR ---
NO ACUTE CHANGES TO ASSESSMENT
--- NOTE | 2019-05-09 06:30 | NUR ---
EXTRA LARGE INCONTINENT BM. LANI CARE, GOWN CHANGE, AND CATH CARE COMPLETED. PT REPORTS FEELING BETTER AND MORE RESTED.
--- NOTE | 2019-05-09 07:00 | NUR ---
Report received, orders acknowledged.
--- NOTE | 2019-05-09 07:45 | NUR ---
Respiratory therapy in room with patient
--- NOTE | 2019-05-09 08:07 | NUR ---
Patient sleeping in bed, rouses to verbal stimulation. Breakfast order received. POC discussed with patient. Denies further needs at this time, call light within reach.
--- NOTE | 2019-05-09 08:10 | NUR ---
Patient produced a large bowel movement in bed. Patient cleaned, new gown and linens provided, attends in place. Orozco draining yellow urine, output of 125 mls. AM medications given. BS of 97, additional insulin held per Dr. De La Paz. Denies further needs at this time, call light within reach.
--- NOTE | 2019-05-09 09:15 | NUR ---
Patient sitting up in bed eating breakfast. Vapotherm at 28% with 5L, SpO2 of 100%. Denies needs at this time, call light within reach.
--- NOTE | 2019-05-09 09:33 | NUR ---
Patient sitting up in bed visiting with mother. Denies needs at this time, call light within reach.
--- NOTE | 2019-05-09 11:15 | NUR ---
Patient sitting up in bed watching tv. BM produced, patient cleaned. Orozco cath D/C'd and cardiac monitoring D/C'd. Denies further needs at this time, call light within reach.
--- NOTE | 2019-05-09 15:44 | NUR ---
PT IS UP IN CHAIR, PLAYING GAMES ON HIS COMPUTER. DENIES PAIN, STATES HE IS "DOING GOOD" AT THIS TIME. DRANK 100ML OF ORANGE JUICE. CALL LIGHT IN REACH.
--- NOTE | 2019-05-09 15:46 | NUR ---
THIS MORNING BEFORE PHYSICAL THERAPY COULD WORK WITH HIM SHE HELPED ME ROLL HIM SO I COULD CLEAN HIM UP AND PUT A NEW ATTEND ON HIM. THAN I STOOD BY IN CASE SHE NEEDED MY HELP. CHANGED HIS LINENS. HE MIGHT GET IN THE SHOWER TODAY. I WILL ASK HIM AGAIN.
--- NOTE | 2019-05-09 15:50 | NUR ---
RIGHT NOW HE IS UP IN HIS CHAIR PLAYING A GAME ON HIS COMPUTER.
--- NOTE | 2019-05-09 19:20 | NUR ---
REPORT RECEIVED FROM DAY SHIFT RN. PT LYING IN BED, ALERT AND ORIENTED. NO QUESTIONS OR CONCERNS AT THIS TIME. CALL LIGHT IN REACH.
--- NOTE | 2019-05-09 19:57 | NUR ---
SUPERINTENDENT POLICE ROUNDING NOTE. PT SITTING UP IN BED, USING LAPTOP. PT STATES THAT HE HAS BEEN HAVING A COUGHING FIT. DENIES NEEDS AT THIS TIME. AGREES TO USE CALL LIGHT FOR NEEDS. CALL LIGHT AND PERSONAL ITEMS WITHIN REACH. WHITE BOARD UPDATED.
--- NOTE | 2019-05-09 22:20 | NUR ---
EVENING ASSESSMENT COMPLETE. PM MEDS GIVEN WITHOUT DIFFICULTY. ALLEVYN DRESSINGS PLACED ON BILAT HEELS FOR SCABBED/REDDENED AREAS. HEEL PROTECTORS IN PLACE. O2 2L/NC. ATTENDS CHANGED D/T INCONTINENCE. LANI CARE DONE BY STAFF, SCHEDULED DESITIN AND NYSTATIN APPLIED TO GROIN AND COCCYX AREA D/T REDNESS. PT REPOSITIONED TO RIGHT SIDE WITH PILLOWS. DENIES FURTHER NEEDS AT THIS TIME. CALL LIGHT IN REACH.
--- NOTE | 2019-05-09 23:50 | NUR ---
PT RESTING IN BED WITH EYES CLOSED, NAD.
--- NOTE | 2019-05-10 02:10 | NUR ---
PT STATES HE'S HAVING "TROUBLE BREATHING". O2 NC IN PLACE, OXYGEN SATURATIONS 100%. RR EVEN AND NON-LABORED. PT REQUESTING PRN BREATHING TX, RT NOTIFIED.
--- NOTE | 2019-05-10 04:21 | NUR ---
PT RESTING IN BED WITH EYES CLOSED, RESPIRATIONS EVEN AND UNLABORED. CALL LIGHT IN REACH.
--- NOTE | 2019-05-10 06:25 | NUR ---
LAB IN ROOM. PT AWAKE, STATES HE WAS FINALLY ABLE TO GET A LITTLE SLEEP AFTER THE LAST BREATHING TX. HP IN PLACE. O2 IN PLACE. PT DENIES OTHER NEEDS, CALL LIGHT IN REACH.
--- NOTE | 2019-05-10 07:31 | NUR ---
RECIEVED BEDSIDE REPORT FROM LUPE BETTS. RT WAS IN ROOM FINISHING BREATHING TREATMENT. PT HAD DOZED OFF AGAIN. RT LOWERED O2 TO 1L, THOUGH ADVISED WE CAN INCREASE TO 6L WITH ACTIVITY.
--- NOTE | 2019-05-10 09:49 | NUR ---
PT IS RESTING IN BED, REPORTS HE DID NOT SLEEP WELL LAST NIGHT. HE HAS DAYS/NIGHTS MIXED UP. GETTING PT UP, LIGHTS ON, BLINDS UP.
--- NOTE | 2019-05-10 17:43 | NUR ---
ASSISTED NAPHTHALENE OPERATOR HELPER WITH GETTING PT SETTLED IN CHAIR. PT IS COMFORTABLE IN CHAIR, WITH HIS DINNER. DINNER MEDS GIVEN. NO C/O PAIN. CALL LIGHT IN REACH.
--- NOTE | 2019-05-10 19:23 | NUR ---
PATIENT TOOK A SHOWER BEFORE DINNER. PATIENT TRANSFERED FROM HIS BED TO THE SHOWER CHAIR. USED WALKER. WASHED HIS HAIR AND HIS WHOLE BODY. THAN NURSE HELPED ME GET HIM INTO THE CHAIR. I ASKED PATIENT GO TO BED AND HE SAID NOT RIGHT NOW HE IS FINE.
--- NOTE | 2019-05-10 20:04 | NUR ---
REPORT RECEIVED FROM DAY SHIFT RN. PT LYING IN BED, ALERT AND ORIENTED. PT INCONTINENT OF URINE, ATTENDS CHANGED. LANI CARE DONE. O2 2L/NC IN PLACE. HOB ELEVATED. NO QUESTIONS OR CONCERNS AT THIS TIME. CALL LIGHT IN REACH.
--- NOTE | 2019-05-10 22:35 | NUR ---
EVENING ASSESSMENT COMPLETE. SCHEDULED MEDS GIVEN WITHOUT DIFFICULTY. PRN GIVEN FOR BACK PAIN. O2 2L/NC IN PLACE. PT WITHOUT FURTHER NEEDS AT THIS TIME. CALL LIGHT IN REACH.
--- NOTE | 2019-05-10 23:35 | NUR ---
PT AWAKE WATCHING COMPUTER. ALLEVYN DRESSINGS REPLACED BILAT HEELS, HP APPLIED.
--- NOTE | 2019-05-11 01:25 | NUR ---
PT RESTING IN BED WITH EYES CLOSED, NAD.
--- NOTE | 2019-05-11 03:10 | NUR ---
CALL LIGHT ANSWERED. PT STATES HE IS "WHEEZY" AND WOULD LIKE A BREATHING TX. OXYGEN SATURATIONS 100% ON 2L/NC. RR 22. AUDIBLE EXPIRATORY WHEEZES. BREATHING TX DONE, PT STATES BREATHING HAS IMPROVED. NO FURTHER NEEDS AT THIS TIME. CALL LIGHT IN REACH.
--- NOTE | 2019-05-11 04:21 | NUR ---
PT LYING IN BED RESTING WITH EYES CLOSED, NAD.
--- NOTE | 2019-05-11 06:19 | NUR ---
PT RESTING IN BED WITH EYES CLOSED, O2 2L/NC IN PLACE. RR EVEN AND UNLABORED. CALL LIGHT IN REACH.
--- NOTE | 2019-05-11 07:46 | NUR ---
RECIEVED BEDSIDE REPORT FROM ALPESH ANDRADE. PT HAD A LIQUID BM HE WAS TRANSFERED TO THE CHAIR. CLEANED WITH HELP OF OIL EXTRACTOR. PT IS NOW IN CHAIR, COMFOTABLE. HE IS REQUESTING A BREATHING TREATMENT. RT CAME, BUT IN THE MIDDLE OF CHANGE.
--- NOTE | 2019-05-11 07:52 | NUR ---
PT BLOOD SUGAR IS 55. IMMEDIATLY GAVE BREAKFAST AND JUICE. PT IS ASYMPTOMATIC. STATES THIS IS THE LOWEST SUGAR HE HAS HAD IN AGES, IT WAS IN THE 500's PREVIOUSLY.
--- NOTE | 2019-05-11 07:56 | NUR ---
BLOOD SUGAR 55 RN NOTIFIED. GAVE PATIENT JUICE. PATIENT SITTING UP IN CHAIR EATING BREAKFAST WITH CALL BUTTON IN REACH. LINENS CHANGED. NO OTHER NEEDS AT THIS TIME.
--- NOTE | 2019-05-11 09:47 | NUR ---
RECHECKED CBG AFTER BREAKFAST, BLOOD SUGAR INCREASED TO 118. DR AVENDAÑO AWARE. INSULIN HELD.
--- NOTE | 2019-05-11 10:10 | NUR ---
SPOKE WITH PATIENT IN ROOM. PATIENT UP IN CHAIR. STATES HE FEELS "SO MUCH BETTER" THAN LAST WEEK. STATES HE STILL FEELS VERY WEAK. DISCUSSED DISCHARGE PLAN. HE STILL WANTS TO RETURN HOME TO DAUGHTERS PLACE WITH . WE DISCUSSED HIS FEELING PHYSICALLY ABLE TO DO SO AND THAT WE WILL KEEP WORKING TOWARDS THIS SO HE IS SAFE WHEN HE GOES HOME. PATIENT VERY PLEASANT. DISCUSSED CONTINUED WORK WITH THERAPY TO SEE IF HE NEEDS THERAPY AFTER DISCHARGE. PATIENT STATES UNDERSTANDING. STATES HE IS GLAD TO STAY HERE UNTIL HE FEELS SAFE TO RETURN HOME. WILL CONTINUE TO FOLLOW.
--- NOTE | 2019-05-11 14:12 | NUR ---
PATIENT SIITING UP ON CHAIR. FRESH ICE WATER GIVEN. CALL BUTTON IN REACH. NO OTHER NEEDS AT THIS TIME.
--- NOTE | 2019-05-11 15:48 | NUR ---
PT'S IV INFILTRATED. LINE DC'd. NEW IV PLACE ON RIGHT FA, 22G, FLUSHED WELL WITH GOOD BLOOD RETURN. PT TOLERATED WELL.
--- NOTE | 2019-05-11 20:03 | NUR ---
REPORT RECEIVED FROM DAY SHIFT RN. PT LYING IN BED, ALERT AND ORIENTED. 2L/NC IN PLACE, RR EVEN AND UNLABORED. FRESH ICE WATER GIVEN. NO QUESTIONS OR CONCERNS AT THIS TIME. CALL LIGHT IN REACH.
--- NOTE | 2019-05-11 22:20 | NUR ---
EVENING ASSESSMENT COMPLETE. EVENING MEDS GIVEN WITHOUT ISSUE. PT DENIES PAIN. O2 2L/NC IN PLACE, PT DENIES SOB AT THIS TIME. HEEL PROTECTORS IN PLACE. FRESH WATER GIVEN. NO FURTHER NEEDS AT THIS TIME. CALL LIGHT IN REACH.
--- NOTE | 2019-05-12 02:30 | NUR ---
PT FOUND SITTING ON THE SIDE OF THE BED. INCONTINENT OF STOOL AND URINE. LANI CARE DONE, LINENS CHANGED. INCREASED SOB WITH EXERTION, REQUESTING PRN BREATHING TX. RT NOTIFIED. O2 2L/NC IN PLACE.
--- NOTE | 2019-05-12 04:20 | NUR ---
PT CONTINUES RESTING IN THE RECLINER WITH FEET ELEVATED AND EYES CLOSED, NAD. O2 2L IN PLACE. CALL LIGHT IN REACH.
--- NOTE | 2019-05-12 05:20 | NUR ---
IN ROOM TO ASSIST PT BACK TO BED FROM RECLINER. PT STATES HE FEELS "DRUNK" AND "JUST NOT RIGHT". BLOOD SUGAR 49. GRAPE JUICE, PROTEIN ENSURE, AND HOWIE CRACKERS GIVEN. BLOOD SUGAR AT LAST CHECK WAS 61. PT RESTING IN BED AT THIS TIME. CALL LIGHT IN REACH.
--- NOTE | 2019-05-12 06:25 | NUR ---
BS 118. MD NOTIFIED OF LOW BLOOD SUGAR, NEW ORDERS RECEIVED IF LESS THAN 80. PT RESTING IN BED WITH EYES CLOSED AT THIS TIME. CALL LIGHT IN REACH.
--- NOTE | 2019-05-12 08:27 | NUR ---
PT SITTING UP IN BED DROWSY, ALERT TO NAME BREAKFAST AT BEDSIDE, REPORTS NO PAIN
--- NOTE | 2019-05-12 09:29 | NUR ---
PATIENT'S APPETITE HAS IMPROVED. HE IS EATING 100% OF MEALS NOW. HAD LOW BLOOD SUGAR THIS AM. HE IS ON A 60 GRAM CONSISTENT CARB DIET FOR DIABETES. SHOULD GO HOME TODAY. NO NUTRITION ISSUES NOTED AT THIS TIME.
--- NOTE | 2019-05-12 09:51 | NUR ---
PATIENT RESTING IN BED. IN ROOM. PATIENT'S ATTEND CHANGED. ONE PERSON ASSISTING. PATIENT HAS BROKEN SKIN BETWEEN HIS BUTTOCKS. RN NOTIFIED. VITAL SIGNS AND I&O DONE. CALL LIGHT WITHIN REACH. NO OTHER NEEDS AT THIS TIME
--- NOTE | 2019-05-12 10:10 | NUR ---
PT ALERT AND ORIENTED, SPOUSE AT BEDSIDE FOR TO MD CHARLETTE AWARE. PT REPORTS NO PAIN OR NAUSEA, NO CONCERNS OR REQUESTS. FOLDING CHAIR PROVIDED TO SPOUSE TO SIT CLOSER TO BEDSIDE.
--- NOTE | 2019-05-12 11:15 | NUR ---
TALKED WITH PT ABOUT HIS SEPSIS AND PNEUMONIA. PT STATES HE UNDERSTANDS ABOUT THE SEPSIS AND THE PNEUMONIA. WENT THROUGH THE PT INFORMATION PACKET AND HE STATES HE IS COMFORTABLE WITH THE INFORMATION, HE SAYS "I JUST NEED TO ACTUALLY GET WELL." WE TALKED ABOUT HIM POSSIBLY NEEDING TO GO TO A SNF TO REHAB AND HIS ADAMANT ANSWER WAS "NOPE NOT GOING TO ANY DETENTION BEEN THERE ONCE AND WON'T GO BACK AGAIN." WE TALKED ABOUT THERE ARE DIFFERENT FACILITIES AND HE SAID NOPE WON'T GO.
--- NOTE | 2019-05-12 12:39 | NUR ---
PT ALERT, ORIENTED AND SOMEWHAT [place]. VERY PLEASANT VISIT, JOKING AND SEEMS VERY PLEASED WITH HIS CARE AT [facility]. PT REQUESTED PRAYER, WILL FOLLOW NEEDED
--- NOTE | 2019-05-12 13:29 | NUR ---
PT IS SEEN FOR A WOUND CONSULT OF THE BUTTOCK/COCCYX REIGION FOR PRESSURE INJURIES. PT HAS A HX OF DIABETES, NEUROPATHY, AND IS CURRENTLY ADMITTED FOR SEPSIS PNEUMONIA. IT IS RELAYED THAT THE PT IS WHEELCHAIR BOUND PRIOR TO ADMISSION. PT REPORTS THAT HE HIS BUTTOCK HAVE BEEN SORE FOR WEEKS. 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 THE PT ALSO HAS A DEEP TISSUE INJURY ON THE LEFT BUTTOCK INFERIOR. THE BASE OF THE STAGE 2 PRESSUE INJURIES ARE CLEAN NON-GRANULATING TISSUE. THE LEFT BUTTOCK SUPERIOR PRESSUE INJURIES MEASURES 0.8CM X 0.8CM X 0.1CM; INFERIOR MEASURES 0.2CM X 1.9CM; GLUTEAL CLEFT SUPERIOR MEASURES 0.9CM X 0.1CM X 0.1CM; INFERIOR MEASURES 0.4CM X 0.3CM X 0.1CM. THE EDGES ARE PROLIFERATIVE, WITH NO SIGNS OF UNDERMINING OR TUNNELING. THERE IS A SMALL AMOUNT OF SEROUS EXUDATE COMING FROM THE STAGE 2 INJURIES. THERE ARE NO SIGNS OF INFECTION. THE PERIWOUND SKIN IS INTACT AND BLANCHABLE. PT REPORTS SOME MILD PAIN WITH CLEANING OF THE WOUND. CARE PLAN: 1. CLEANSE THE AREA WITH WOUND CLEANSER OR WARM WATER AND SOAP. 2. APPLY SKIN PREP TO PERIWOUND SKIN. 3. APPLY MEDIHONEY TO ANY OPEN PRESSURE INJURY. 4. COVER WITH ADHESIVE FOAM DRESSINGS. 5. CHANGE THE DRESSING EVERY 3 DAYS OR PRN FOR SOILED DRESSINGS.
--- NOTE | 2019-05-12 14:22 | NUR ---
PT TWO PERSON PIVOTED TO RECLINER, LUNCH ORDER ARRIVED. PT'S SPOUSE LEFT TO HOME. PT HAS C/D/I DRESSING ON BUTTOCKS PLACED BY NEEMA TAVERAS WOUND CARE NURSE. PT TOLERATED ACTIVITY WELL.
--- NOTE | 2019-05-12 14:29 | NUR ---
PATIENT SITTING UP IN CHAIR. VITAL SIGNS AND I&O DONE. LINENS CHANGED. CALL LIGHT WITHIN REACH. NO OTHER NEEDS AT THIS TIME
--- NOTE | 2019-05-12 16:18 | NUR ---
PT HAS BEEN UP TO RECLINER FOR MEALS HAS HAD MULTIPLE LOOSE BM TODAY, HELD BOWEL MEDICATIONS. HE HAD SINGING TELEGRAM PERFORMER NEEMA TAVERAS RN TO TREAT BUTTOCKS AND DRESS. GOOD APPETITE, QUANTITY SUFFICIENT URINE OUT, INCONTINENT. ON ROOM AIR AT REST AND AWAKE.
--- NOTE | 2019-05-12 17:16 | NUR ---
Spoke with Rolando. He is smiling, "feels better". Plans on dc to [facility] house when discharged. Denies needs, would like a commode with handles. [place] form taken to room for family to fill out as medicare does not provide commodes.
--- NOTE | 2019-05-12 17:26 | NUR ---
PATIENT RESTING IN BED. VITAL SIGNS AND I&O DONE. CALL LIGHT WITHIN REACH. NO OTHER NEEDS AT THIS TIME
--- NOTE | 2019-05-12 18:24 | NUR ---
PT COMPLETED DINNER, DEPENDS CHECKED, URINE NOTED, TRACE STOOL. PT CHNAGED DESITIN APPLIED, PT REPOSITIONED.
--- NOTE | 2019-05-12 19:30 | NUR ---
REPORT RECEIVED FROM DAY SHIFT RN. PT LYING IN BED, ALERT AND ORIENTED. PT DENIES NEEDS AT THIS TIME. CALL LIGHT WITHIN REACH.
--- NOTE | 2019-05-12 21:40 | NUR ---
EVENING ASSESSMENT COMPLETE. PM MEDS GIVEN WITHOUT DIFFICULTY. PRN GIVEN FOR 3/10 BILAT FOOT PAIN. ATTENDS CHANGED DUE TO URINE AND STOOL INCONTINENCE. LANI CARE DONE BY STAFF. ALLEVYN DRESSINGS INTACT. HP IN PLACE. FRESH WATER GIVEN. PT WITH NO QUESTIONS OR CONCERNS AT THIS TIME. CALL LIGHT IN REACH.
--- NOTE | 2019-05-13 00:57 | NUR ---
PT LYING IN BED RESTING WITH EYES CLOSED, NAD. O2 97% ON RA, RR EVEN AND UNLABORED. CALL LIGHT WITHIN REACH.
--- NOTE | 2019-05-13 03:25 | NUR ---
PT INCONTINENT OF URINE AND STOOL, ATTENDS CHANGED. LANI CARE DONE BY STAFF. DESITIN APPLIED TO SCROTUM. ALLEVYN DRESSINGS REPLACED TO BLE. HP IN PLACE. O2 2L/NC IN PLACE.
--- NOTE | 2019-05-13 06:30 | NUR ---
PT INCONTINENT OF URINE AND STOOL. DRESSING ON BUTTOCKS REMOVED DUE TO STOOL. LANI CARE DONE, BARRIER CREAM APPLIED. PT STILL HAVING BM, WILL WAIT TO APPLY CLEAN DRESSING. PT DENIES OTHER NEEDS AT THIS TIME. CALL LIGHT IN REACH.
--- NOTE | 2019-05-13 07:20 | NUR ---
BEDSIDE HANDOFF REPORT RECEIVED FROM ACTUARIAL ASSISTANT RN. PT SLEEPING, LEFT UNDISTURBED.
--- NOTE | 2019-05-13 08:30 | NUR ---
patient is resting in bed with eyes closed. respirations noted.
--- NOTE | 2019-05-13 09:45 | NUR ---
PT RESTING IN BED. PT ON 2L NC, LUNG SOUNDS WITH EXPIRATORY WHEEZE AND DIMINISHED BASES, PT STATES BREATHING HAS IMPROVED. BOWEL TONES ACTIVE, TOLERATING 60G CARB CONTROL DIET, GIVEN 3 UNITS SS HUMALOG FOR BLOOD GLUCOSE 188. PT INCONTINENT OF STOOL, PERICARE PERFORMED. MEDIHONEY AND ALLEVY APPLIED TO LEFT BUTTOCK PRESSURE ULCER, DESITIN APPLIED TO BUTTOCK, SCROTUM, AND SKIN FOLDS. PT WITH WOUNDS TO BILATAL FEET WITH ALLEVYNS IN PLACE. MORNING MEDICATIONS ADMINISTERED BY SHIP'S MASTER WITH SUPERVISION BY THIS RN. PT DENIES OTHER NEEDS AT THIS TIME.
--- NOTE | 2019-05-13 10:10 | NUR ---
patient resting in bed. daughter and in room. I was about to assist with oral care but then Doctor entered the room to talk to the patient.
--- NOTE | 2019-05-13 11:07 | NUR ---
PT ALERT, ORIENTED AND SITTING UP IN BED WATCHING TV. HE SAID HE LIKES POLICE SHOWS. MENTIONED HE SLEPT FAIRLY WELL, GOOD DEMEANOR, GAVE BLESSING. WILL CONTINUE TO FOLLOW
--- NOTE | 2019-05-13 12:45 | NUR ---
PT GIVEN 3 UNITS SS HUMALOG FOR BLOOD GLUCOSE 178. PT RESTING IN BED, EATING LUNCH. PT DENIES NEEDS AT THIS TIME.
--- NOTE | 2019-05-13 14:55 | NUR ---
In and spoke with Rolando, he is awake and teasing the student nurses. Denies c/o. Per Dr. Valdes in 829 meeting, pt will require fluids due to dehydration and will not dc today.
--- NOTE | 2019-05-13 15:43 | NUR ---
PT ON 2L NC, LUNG SOUNDS CLEAR WITH DIMINIHSED BASES. EDEMA TO BLE UNCHANGED. PT NOW SALINE LOCKED, 500 ML BOLU COMPLETED. PT REQUESTING TYLENOLFOR PAIN, 500 MG GIVEN. DISCUSSED DIFFICULTY WITH DRESSING TO BUTTOCK WITH NEEMA CARDBOARD INSERTER, PLAN TO CHANGE DRESSING TO PLAIN FOAM AND SECURE WITH OPSITE. NO ACUTE CHANGES. PT DENIES OTHER NEEDS AT THIS TIME.
--- NOTE | 2019-05-13 16:46 | NUR ---
PATIENT RESTING IN BED. RN IN ROOM. PATIENT GOES TO TAKE A SHOWER. LINENS CHANGED. TWO PERSON ASSISTING. PATIENT USING A CLEAN GOWN AND ADULT PULL UP. PATIENT BACKS TO BED. GRANDDAUGHTER IN ROOM. CALL LIGHT WITHIN REACH. NO OTHER NEEDS AT THIS TIME
--- NOTE | 2019-05-13 16:54 | NUR ---
Up to shower with help from FEATHER STITCHER. Using shower chair, completed shower, towards end of shower stated having some dizzyness. Dried off with help and back to bed. New linens. Visitor here visiting. Patient sitting on side of bed. Dizzyness has passed.
--- NOTE | 2019-05-13 21:04 | NUR ---
BS check was complete with a reading of 353.
--- NOTE | 2019-05-13 21:35 | NUR ---
ROUNDED CHARGE. PATIENT IS RESTING IN BED. KANDIS ANDRADE AND PAUL AHMADI ARE IN THE ROOM. PATIENT DENIES ANY NEEDS. CALL LIGHT IN REACH.
--- NOTE | 2019-05-13 21:40 | NUR ---
PATIENT WAS INCONTINENT URINE, ATTENDS AND CHUX PADS CHANGED. PATIENT TOOK MEDS WITHOUT DIFFICULTY, DSITIN AND NYSTATIN POWDER APPLIED TO BUTTOCKS, LANI-AREA AND PANUS. PATIENT REMAINS ON HIS 2L/NC HUMIDIFIED. PATIENT CONTINUES TO WATCH TV AND USE HIS LAPTOP. ALL LIGHT IN REACH.
--- NOTE | 2019-05-13 23:19 | NUR ---
PATIENT WATCHING TV. PATIENT HAS NO NEEDS AT THIS TIME AND SAID HE HAS GOTTEN A LITTLE SLEEP. CALL LIGHT IN REACH.
--- NOTE | 2019-05-14 01:39 | NUR ---
PATIENT AWAKE, SAID HE NAPPED FOR A BIT AGAIN AND NOW IS LISTENING TO HIS HEADPHONES ON HIS COMPUTER. CALL LIGHT IN REACH AND PATIENT HAD NO NEEDS.
--- NOTE | 2019-05-14 03:39 | NUR ---
PATIENT FINALLY RESTING QUIETLY AGAIN, EYES CLOSED, RESPIRATIONS REGULAR AND EVEN, CALL LIGHT IN REACH, HEEL PROTECTORS ON.
--- NOTE | 2019-05-14 05:23 | NUR ---
PATIENT HAS BEEN AWAKE ON AND OFF THROUGH THE NIGHT, CHANGED ONCE FOR A LARGE INCONTINENCE OF URINE AND ATTENDS AND CHUX CHANGED. PATIENT A+O AND HAS NOT CALLED FOR BEING WET AGAIN YET, BUT MAY BEFORE 6AM. PATIENT HAS SPENT A LOT OF TIME WATCHING TV OR ON HIS LAP TOP. CALL LIGHT IN REACH.
--- NOTE | 2019-05-14 07:45 | NUR ---
0730: REPORT RECEIVED FROM KANDIS ANDRADE. PT SLEEPING AT THIS TIME, CALL GUERRERO WITHIN REACH.
--- NOTE | 2019-05-14 08:30 | NUR ---
PT RESTING IN HIS BED AND HE DENIES ANY PAIN OR PROBLEMS. SAT 100% ON 2L OF O2, O2 TURNED OFF AT THIS TIME. PT STATES HE NORMALY ONLY WEARS O2 AT NIGHT PRIOR TO HIS HOSPITAL ADMIT. WILL CONTINUE TO MONITOR. PT WAS INCONT OF URINE AND WAS CLEANED AND A FRESH ATTENDS WAS PLACED. CALL GUERRERO REMAINS IN REACH AT THIS TIME.
--- NOTE | 2019-05-14 08:33 | NUR ---
AFTER BEING ON ROOM AIR FOR ABOUT 10 SAT WAS RECHECKED AND IS 96%. WILL CONTINUE TO MONITOR.
--- NOTE | 2019-05-14 08:45 | NUR ---
PT STATES HIS BREATHING IS FEELING WORSE AND HE REQUESTED TO HAVE TO O2 REPLACED. SAT 95% ON ROOM AIR, O2 REPLACED AND HIS SAT INCREASED TO 100%, LUNG SOUNDS UNCHANGED. PT IS DUE FOR SCHEDULED NEBS, RT WILL BE CALLED.
--- NOTE | 2019-05-14 10:18 | NUR ---
Pt playing a game on his computer while resting in bed. He states his breathing feels "fine" at this time. Sat checked and is 100%, pt removed his o2. He states he would like the o2 left on in case he needs it back on.
[2019-05-14] MEDS ORDERED: METOPROLOL SUCC25 MG PO (11:32)
[2019-05-14] MEDS ORDERED: TORSEMIDE20 MG PO (11:38)
[2019-05-14] MEDS ORDERED: TUMS X-STR300 MG PO (11:38)
[2019-05-14] MEDS ORDERED: PREDNISONE20 MG PO (11:41)
--- NOTE | 2019-05-14 13:04 | NUR ---
PT ALERT, ORIENTED AND SEEMS EXCITED TO DC. THANKED ME FOR VISITING, SAID HE SLEPT WELL AND IS FEELING MUCH BETER. PT USING O2NC, EXTENDED A BLESSING, WILL FOLLOW NEEDED
--- NOTE | 2019-05-14 16:55 | NUR ---
Face sheet, er note, H&P, progress notes, DC summary, orders for HH, orders for wound care scanned to [facility] per fax machine.
== END 2019-05-14 13:40 | disposition home health service (06) | DRG 871 ==
LOC: ED 11:08 → CCU 13:44 → MS 05-09 11:36
PROVIDERS: ADMIT Internal Medicine
DX: A41.52 Sepsis due to Pseudomonas (principal); J15.1 Pneumonia due to Pseudomonas; G93.41 Metabolic encephalopathy; N17.9 Acute kidney failure, unspecified; N18.4 Chronic kidney disease, stage 4 (severe); J44.1 Chronic obstructive pulmonary disease with (acute) exacerbation; J44.0 Chronic obstructive pulmonary disease with (acute) lower respiratory infection; I47.1 Supraventricular tachycardia; R65.20 Severe sepsis without septic shock; E11.22 Type 2 diabetes mellitus with diabetic chronic kidney disease; I12.9 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e 4 chronic kidney disease, or unspecified chronic kidney disease; E11.21 Type 2 diabetes mellitus with diabetic nephropathy; D63.1 Anemia in chronic kidney disease; E78.5 Hyperlipidemia, unspecified; G47.36 Sleep related hypoventilation in conditions classified elsewhere; G89.4 Chronic pain syndrome; E11.51 Type 2 diabetes mellitus with diabetic peripheral angiopathy without gangrene; F41.9 Anxiety disorder, unspecified; H40.9 Unspecified glaucoma; Z88.8 Allergy status to other drugs, medicaments and biological substances; Z66 Do not resuscitate; Z99.3 Dependence on wheelchair; Z79.02 Long term (current) use of antithrombotics/antiplatelets; Z79.82 Long term (current) use of aspirin; Z79.4 Long term (current) use of insulin; Z79.51 Long term (current) use of inhaled steroids; Z79.899 Other long term (current) drug therapy
CPT/HCPCS: 36415; 36430; 36600; 51702; 71045; 74176; 80048; 80053; 80069; 81001; 82570; 82803; 83036; 83605; 83735; 83880; 84100; 84295; 84300; 84484; 84540; 85025; 86850; 86900; 86901; 86920; 87040; 87070; 87077; 87088; 87184; 87186; 87205; 87502; 93005; 93010; 94640; 94667; 94668; 94760; 94799; 97110; 97163; 97165; 99285-25; J0456; J0692; J0696; J1650; J1720; J1815; J1940; J2405; J2543; J2550; J2930; J3475; J7030; J7060; J7121; J7512; P9016

== ENCOUNTER 2019-11-18 18:02 | Emergency (ER) | payer MEDICARE ==
[~2019-11-18] VITALS: Ht 170.2 cm; Wt 101.2 kg
[~2019-11-18 18:02] MED LIST changes: +ALOGLIPTIN12.5 MG PO; +COLACE CLEAR50 MG PO; +DOXAZOSIN MESYLA8 MG PO; +FEOSOL325 MG PO; +HUMULIN R100 UNIT/1 SUB-Q; +LASIX20 MG PO; +MEN'S ONE DAIL1 EACH PO; +METOPROLOL SUCC25 MG PO; +NEURONTIN300 MG PO; +NORVASC5 MG PO; +PREDNISONE20 MG PO; +SPIRIVA RESPIMAT4 GM INH; +TUMS X-STR300 MG PO
--- OUTSIDE RECORDS SUMMARY | 2019-11-18 18:06 | XMS ---
PreManage Notification: FILI CHAPA Security Side Guider Events No recent Security Events currently on file CRITERIA MET - [facility] - Has Care Guidelines - PDMP CARE PROVIDERS EMMA BROOKS Internal Medicine Current PHONE: [phone] JONI STARK Internal Medicine Current PHONE: [phone] Alma Delia has no Care Guidelines for this patient. Care History Medical/Surgical 05/05/2019 [facility] Appropriate use of ED.\T\nbsp; Patient admitted to [facility].\T\nbsp; 04/13/2019 [facility] Patient came in after walk in clinic closed.\T\nbsp; Patient has follow up with Dr. Stark on 04/14/2019 06/25/2018 [facility] - Patient is currently established with [facility]. If patient is seen in the ED during business hours. Please contact CHWs at [facility]. Care Recommendation: If this patient has had 5 or more Emergency Department visits in the last 12 months.\T\nbsp; Patient will require education on the scope and purpose of the ED as an acute care provider not a Primary Care Provider and should not be utilized for chronic conditions.\T\nbsp; These are guidelines and the provider should exercise clinical judgment when providing care. [facility] [address] [facility] TOTAL 4 NOTE: Visits indicate total known visits. ED/UCC VISIT TRACKING (12 MO.) 11/18/2019 18:03 [facility] [place] TYPE: Emergency COMPLAINT: - SEIZURE 06/15/2019 09:14 [facility] Cathie Huddleston JOSE ENRIQUE TYPE: Emergency DIAGNOSES: - Lobar pneumonia, unspecified organism - Anemia, unspecified - Anemia in chronic kidney disease - Shortness of Breath - Chronic kidney disease, stage 4 (severe) 05/04/2019 11:08 [facility] Keyes TYPE: Emergency COMPLAINT: - CHEST PAIN, SOB, FEVER 04/10/2019 17:14 [facility] [place] TYPE: Emergency COMPLAINT: - UPPER AND LOWER EXTREMITY SWELLING DIAGNOSES: - continuous churn buttermaker (current) use of systemic steroids - Hypertensive heart disease with heart failure - residential (current) use of insulin - Allergy status to other drugs, medicaments and biological sub - Other mcfp (current) drug therapy - Personal history of nicotine dependence - Shortness of breath - Chronic obstructive pulmonary disease, unspecified - Type 2 diabetes mellitus without complications - residential (current) use of aspirin - Heart failure, unspecified INPATIENT VISIT TRACKING (12 MO.) 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 - 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 - Anemia in chronic kidney disease - Type 2 diabetes mellitus with diabetic peripheral angiopathy - Chronic pain syndrome - continuous churn buttermaker (current) use of insulin - Do not resuscitate - Pneumonia due to Pseudomonas - Chronic obstructive pulmonary disease with acute lower respir - residential (current) use of inhaled steroids - Chronic kidney disease, stage 4 (severe) - Anxiety disorder, unspecified - Unspecified glaucoma - continuous churn buttermaker (current) use of antithrombotics/antiplatelets - Type 2 diabetes mellitus with diabetic chronic kidney disease - Supraventricular tachycardia - Allergy status to other drugs, medicaments and biological sub - continuous churn buttermaker (current) use of inhaled steroids - Pneumonia due to Pseudomonas - Hyperlipidemia, unspecified - Severe sepsis without septic shock - Metabolic encephalopathy - Other hvac design mechanical engineer (current) drug therapy - Acute kidney failure, unspecified - Other mcfp (current) drug therapy - Dependence on wheelchair - Sepsis due to Pseudomonas - Dependence on wheelchair - Severe sepsis without septic shock - continuous churn buttermaker (current) use of aspirin - Chronic obstructive pulmonary disease with (acute) exacerbati - Supraventricular tachycardia - Chronic kidney disease, stage 4 (severe) - Chronic obstructive pulmonary disease with acute lower respir - Type 2 diabetes mellitus with diabetic nephropathy - Hyperlipidemia, unspecified - 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 - Anxiety disorder, unspecified - Type 2 diabetes mellitus with diabetic nephropathy - residential (current) use of antithrombotics/antiplatelets - Chronic obstructive pulmonary disease with (acute) exacerbati - Acute kidney failure, unspecified - residential (current) use of insulin - Sepsis, unspecified organism - Allergy status to other drugs, medicaments and biological sub - Do not resuscitate - Type 2 diabetes mellitus with diabetic chronic kidney disease - 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
[2019-11-18] MEDS ORDERED: FUROSEMIDE40 MG PO (18:25)
[2019-11-18] MEDS ORDERED: GLIPIZIDE10 MG PO (18:25)
[2019-11-18] MEDS ORDERED: AMOX TR-K CLV1 EACH PO (18:27)
--- NOTE | 2019-11-19 21:37 | EKG ---
[facility] [address] [facility] [place] [address] Signed Normal sinus rhythm Right bundle branch block Abnormal ECG When compared with ECG of 07-MAY-2019 17:27, Wide QRS rhythm has replaced Sinus rhythm Confirmed by CHAZ AVENDAÑO DO ([id number]) on 11/19/2019 9:37:38 PM Electronically Signed By: CHAZ AVENDAÑO DO 11/19/19 [id number] PATIENT NAME: FILI CHAPA Electrocardiogram DATE OF : 39 PHYSICIAN: CHAZ AVENDAÑO DO REPORT #: [id number] REPORT IS CONFIDENTIAL AND NOT TO BE RELEASED WITHOUT AUTHORIZATION
== END 2019-11-19 02:57 | disposition short-term general hospital (02) ==
LOC: ED 18:02
DX: J44.1 Chronic obstructive pulmonary disease with (acute) exacerbation (principal); J18.9 Pneumonia, unspecified organism; R55 Syncope and collapse; I12.9 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e 4 chronic kidney disease, or unspecified chronic kidney disease; E11.22 Type 2 diabetes mellitus with diabetic chronic kidney disease; N18.9 Chronic kidney disease, unspecified; D63.1 Anemia in chronic kidney disease; J44.9 Chronic obstructive pulmonary disease, unspecified; Z87.891 Personal history of nicotine dependence; Z88.8 Allergy status to other drugs, medicaments and biological substances; Z79.899 Other long term (current) drug therapy; Z79.84 Long term (current) use of oral hypoglycemic drugs; Z79.02 Long term (current) use of antithrombotics/antiplatelets; Z79.4 Long term (current) use of insulin; Z79.82 Long term (current) use of aspirin
CPT/HCPCS: 70450; 71045; 80053; 81001; 83735; 84484; 85025; 86850; 86900; 86901; 93005; 93010; 94640; 96374; 99285-25; J1956

== ENCOUNTER 2020-02-02 17:06 | Emergency (ER) | payer MEDICARE ==
[~2020-02-02] VITALS: Ht 170.2 cm; Wt 88.5 kg
[~2020-02-02 17:06] MED LIST changes: +AMOX TR-K CLV1 EACH PO; +CALCIUM + VITA1 EACH PO; +CEPHALEXIN500 MG PO; -COLACE CLEAR50 MG PO; +COLACE100 MG PO; +FUROSEMIDE40 MG PO; +HYDROCODON-ACE1 EA10 PO; +IPRAT-ALBUT 0.5-3 ML INH; +MAGOX 400400 MG PO; +TIMOLOL MALEATE5 M2 OU
--- OUTSIDE RECORDS SUMMARY | 2020-02-02 17:08 | XMS ---
PreManage Notification: FILI CHAPA Security Vp Information Technology Events No recent Security Events currently on file CRITERIA MET - [facility] - Has Care Guidelines CARE PROVIDERS EMMA BROOKS Internal Medicine Current PHONE: [phone] JONI STARK Internal Medicine Current PHONE: [phone] Alma Delia has no Care Guidelines for this patient. Care History Medical/Surgical 05/05/2019 [facility] Appropriate use of ED.\T\nbsp; Patient admitted to [facility].\T\nbsp; 04/13/2019 [facility] Patient came in after walk in clinic closed.\T\nbsp; Patient has follow up with Dr. Stark on 04/14/2019 06/25/2018 [facility] - Patient is currently established with [facility]. If patient is seen in the ED during business hours. Please contact CHWs at [facility]. Care Recommendation: If this patient has had 5 or more Emergency Department visits in the last 12 months.\T\nbsp; Patient will require education on the scope and purpose of the ED as an acute care provider not a Primary Care Provider and should not be utilized for chronic conditions.\T\nbsp; These are guidelines and the provider should exercise clinical judgment when providing care. EMahamed VISIT COUNT (12 MO.) [facility] TOTAL 6 NOTE: Visits indicate total known visits. 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 - Chronic kidney disease, unspecified - Other termite exterminator (current) drug therapy - Pneumonia, unspecified organism - Anemia in chronic kidney disease - Chronic obstructive pulmonary disease, unspecified - detention (current) use of aspirin - Personal history of nicotine dependence - intermodal dispatcher (current) use of antithrombotics/antiplatelets - Type 2 diabetes mellitus with diabetic chronic kidney disease - detention (current) use of oral hypoglycemic drugs 06/15/2019 09:14 [facility] Cathie QUISPE TYPE: Emergency DIAGNOSES: - Lobar pneumonia, unspecified organism - Anemia, unspecified - Anemia in chronic kidney disease - Shortness of Breath - Chronic kidney disease, stage 4 (severe) 05/04/2019 11:08 [facility] [place] TYPE: Emergency COMPLAINT: - CHEST PAIN, SOB, FEVER 04/10/2019 17:14 [facility] [place] TYPE: Emergency COMPLAINT: - UPPER AND LOWER EXTREMITY SWELLING DIAGNOSES: - detention (current) use of systemic steroids - Hypertensive heart disease with heart failure - detention (current) use of insulin - Allergy status to other drugs, medicaments and biological sub - Other alf (current) drug therapy - Personal history of nicotine dependence - Shortness of breath - Chronic obstructive pulmonary disease, unspecified - Type 2 diabetes mellitus without complications - intermodal dispatcher (current) use of aspirin - Heart failure, unspecified INPATIENT VISIT TRACKING (12 MO.) 12/16/2019 10:49 [facility] [place] TYPE: Observation COMPLAINT: - PNEUMONIA DIAGNOSES: - detention (current) use of insulin - Unspecified mood [affective] disorder - Chronic respiratory failure with hypoxia - Pneumonitis due to inhalation of food and vomit - Other alf (current) drug therapy - Shortness of breath - detention (current) use of anticoagulants - Peripheral vascular disease, unspecified - Contact with and (suspected) exposure to other viral communic - Type 2 diabetes mellitus with diabetic peripheral angiopathy - detention (current) use of aspirin - Chronic kidney disease, stage 4 (severe) - Chronic obstructive pulmonary disease, unspecified - Allergy status to other drugs, medicaments and biological sub - Type 2 diabetes mellitus with diabetic chronic kidney disease - 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 DIAGNOSES: - Hyperkalemia - Syncope and collapse - Chronic kidney disease, stage 4 (severe) - Unspecified chronic bronchitis - Anemia in chronic kidney disease - Unspecified coma - Myocardial infarction type 2 [facility]2019 [facility] DIAGNOSES: - Chronic obstructive pulmonary disease with (acute) exacerbati - Anemia, unspecified - Lobar pneumonia, unspecified organism - Other nonspecific abnormal finding of lung field - Anemia in chronic kidney disease - Acute respiratory failure with hypoxia - Chronic obstructive pulmonary disease, unspecified - Chronic kidney disease, stage 4 (severe) - Acute kidney failure, unspecified 05/04/2019 13:[address] 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 - Anemia in chronic kidney disease - Type 2 diabetes mellitus with diabetic peripheral angiopathy - Chronic pain syndrome - detention (current) use of insulin - Do not resuscitate - Pneumonia due to Pseudomonas - Chronic obstructive pulmonary disease with acute lower respir - detention (current) use of inhaled steroids - Chronic kidney disease, stage 4 (severe) - Anxiety disorder, unspecified - Unspecified glaucoma - intermodal dispatcher (current) use of antithrombotics/antiplatelets - Type 2 diabetes mellitus with diabetic chronic kidney disease - Supraventricular tachycardia - Allergy status to other drugs, medicaments and biological sub - detention (current) use of inhaled steroids - Pneumonia due to Pseudomonas - Hyperlipidemia, unspecified - Severe sepsis without septic shock - Metabolic encephalopathy - Other termite exterminator (current) drug therapy - Acute kidney failure, unspecified - Other termite exterminator (current) drug therapy - Dependence on wheelchair - Sepsis due to Pseudomonas - Dependence on wheelchair - Severe sepsis without septic shock - detention (current) use of aspirin - Chronic obstructive [...] 2 diabetes mellitus with diabetic nephropathy - intermodal dispatcher (current) use of antithrombotics/antiplatelets - Chronic obstructive pulmonary disease with (acute) exacerbati - Acute kidney failure, unspecified - detention (current) use of insulin - Sepsis, unspecified [...] kidney disease - Chronic pain syndrome - intermodal dispatcher (current) use of aspirin [email or web address]
[2020-02-02] MEDS ORDERED: PAROXETINE HCL20 MG PO (17:17)
--- NOTE | 2020-02-02 20:33 | EKG ---
[facility] [address] [facility] [place] [address] Signed Wide QRS rhythm with occasional premature ventricular complexes Right bundle branch block Abnormal ECG When compared with ECG of 16-DEC-2019 11:18, Wide QRS rhythm has replaced Sinus rhythm Confirmed by CHAZ AVENDAÑO DO ([id number]) on 02/02/2020 8:33:20 PM Electronically Signed By: CHAZ AVENDAÑO DO 02/02/202032 PATIENT NAME: EDUARDFILI Electrocardiogram DATE OF : 39 PHYSICIAN: CHAZ AVENDAÑO DO REPORT #: [id number] REPORT IS CONFIDENTIAL AND NOT TO BE RELEASED WITHOUT AUTHORIZATION
--- NOTE | 2020-02-03 23:47 | PATH ---
[facility] [address] [place], [place] [address] Signed ORDERING PHYSICIAN: Nico De La Paz MD PATIENT NAME: FILI CHAPA GENDER: M : 1935 Prior History: DATE CASE NUM ADEQUACY DIAGNOSIS HPV RESULTS PHYSICIAN The 5 most recent reports are included. This history does not include results of pap smears performed at another laboratory. SPECIMEN(S): No Source Given MOLECULAR PATHOLOGY RESULTS: SARS-CoV-2 Not Detected ADDITIONAL NOTES.: The Yale Fusion SARS-CoV-2 Assay is a multiplex real-time PCR (RT-PCR) in vitro diagnostic test intended for the qualitative detection of RNA from SARS-CoV-2 from individuals who meet COVID-19 clinical and/or epidemiological criteria. In general, SARS-CoV-2 RNA can be detected during the acute phase of infection. Positive results indicate the presence of SARS-CoV-2 RNA. Clinical correlation with patient history and other diagnostic information is necessary to determine patient infection status. Positive results do not rule out bacterial infection or co-infection with other viruses. Negative results do not preclude SARS-CoV-2 infection and should not be used as the sole basis for patient management decisions. Negative results must be combined with other clinical observations, patient history, and epidemiological information. The Yale Fusion SARS-CoV-2 Assay is not yet approved or cleared by the [place] FDA. When there are no FDA-approved or cleared tests available, and other criteria are met, FDA can make tests available under an emergency access mechanism called an Emergency Use Authorization (EUA). The EUA for this test is supported by the Elastic Tape Inserter of Health and Human Service's (HHS's) declaration that circumstances exist to justify the emergency use of in vitro diagnostics for the detection and/or diagnosis of the virus that causes COVID-19. This EUA will remain in effect for the duration of the COVID-19 declaration justifying emergency of IVDs, unless it is terminated or PATIENT NAME: FILI CHAPA PATHOLOGY DATE OF : 39 REPORT #: [id number] PHYSICIAN: MARGE MOHAMUD PCP: JONI STARK MD REPORT IS CONFIDENTIAL AND NOT TO BE RELEASED WITHOUT AUTHORIZATION [facility] [address] [place], [place] [address] Signed revoked by FDA, after which the test may no longer be used. The Yale Fusion SARS-CoV-2 Assay is for use only under EUA in US laboratories certified under the Clinical Laboratory Improvement Amendments of 1988 (CLIA) to perform high complexity tests. [email or web address] is certified under CLIA to perform high complexity clinical laboratory testing. PERFORMING LABORATORY.: Molecular testing was performed by [email or web address] [id number] [place] [address] (Head Refrigeration Engineer: Armond Avilez D.O.; CLIA#: [id number]) Diagnostician: System Interface Pathologist Electronically Signed 02/03/2020 Copies: ~ PATIENT NAME: FILI CHAPA PATHOLOGY DATE OF : 39 REPORT #: [id number] PHYSICIAN: MARGE MOHAMUD PCP: JONI STARK MD REPORT IS CONFIDENTIAL AND NOT TO BE RELEASED WITHOUT AUTHORIZATION
== END 2020-02-02 20:22 | disposition short-term general hospital (02) ==
LOC: ED 17:06
DX: I21.4 Non-ST elevation (NSTEMI) myocardial infarction (principal); E11.9 Type 2 diabetes mellitus without complications; I10 Essential (primary) hypertension; J44.9 Chronic obstructive pulmonary disease, unspecified; Z87.891 Personal history of nicotine dependence; Z88.8 Allergy status to other drugs, medicaments and biological substances; Z79.899 Other long term (current) drug therapy; Z79.4 Long term (current) use of insulin
CPT/HCPCS: 71045; 80053; 81001; 82803; 83605; 83880; 84484; 85025; 93005; 93010; 96365; 96375; 99285-25; C9803; J0696; J1644; J1940; J7040